=== PATIENT | female | born 1980 | race Caucasian/White ===

== ENCOUNTER → 2023-05-15 | Outpatient (CLI) | payer MEDICAID ==
[~2023-05-15] MED LIST: AIMOVIG AU140 MG/1 M SQ; AMITRIPTYLINE H25 M2 PO; FETZIMA40 MG; FETZIMA80 MG PO; LORAZEPAM1 M1 PO; MORGIDOX 1X100100 MG PO; NEURONTIN300 MG/CAP; PREMIERPRO RX5 MG/GM OU; ROPINIROLE HCL1 MG PO; TOPIRAMATE100 MG PO
== END ==
LOC: RAD 15:57
DX: M25.511 Pain in right shoulder (principal); M54.2 Cervicalgia; M54.50 Low back pain, unspecified

== ENCOUNTER → 2023-06-10 | Outpatient (CLI) | payer MEDICAID ==
[2023-06-10 15:54] LABS: ALBUMIN 4.2 g/dL (3.5-5.0)
[2023-06-10 15:56] LABS: CALCIUM 9.9 mg/dL (8.3-10.5)
[2023-06-10 15:57] LABS: TOTAL PROTEIN 6.9 g/dL (6.4-8.3)
[2023-06-10 15:59] LABS: TOTAL BILIRUBIN 0.3 mg/dL (0.2-1.2)
[2023-06-10 16:03] LABS: MAGNESIUM 2.16 mg/dL (1.60-2.60)
== END ==
LOC: LAB 15:38
PROVIDERS: Physician Assistant
DX: R25.2 Cramp and spasm (principal)

== ENCOUNTER → 2024-04-06 | Outpatient (CLI) | payer MEDICAID | LOC: RAD 15:36 | DX: M18.11 Unilateral primary osteoarthritis of first carpometacarpal joint, right hand (principal); S69.92XA Unspecified injury of left wrist, hand and finger(s), initial encounter ==